=== PATIENT | male | born 1990 | race Two or more races ===

== ENCOUNTER 2021-05-16 13:32 | Emergency (ER) | payer SELFPAY ==
[~2021-05-16] VITALS: Ht 170.2 cm; Wt 84.4 kg
[2021-05-16] MEDS ORDERED: cefTRIAXone SOD 1,000 MG VL IM ONE (17:00)
[2021-05-16] MEDS ORDERED: cloNIDine HCL 0.1 MG TAB PO ONE (17:00)
[2021-05-16 18:27] VITALS: BP 157/106
== END 2021-05-16 18:33 | disposition home or self-care (01) ==
LOC: ER 13:32
DX: H60.92 Unspecified otitis externa, left ear (principal); H66.91 Otitis media, unspecified, right ear; F12.10 Cannabis abuse, uncomplicated; F15.10 Other stimulant abuse, uncomplicated
CPT/HCPCS: 96372; 99283; J0696

== ENCOUNTER 2023-04-10 20:56 | Emergency (ER) | payer MEDICAID ==
[~2023-04-10] VITALS: Ht 182.9 cm; Wt 77.2 kg
[2023-04-10] MEDS ORDERED: HYDROmorphone HCL 2 MG/ML VL/or syr IM ONE (21:45)
[2023-04-11] MEDS ORDERED: HYDR-4798 PO (01:12)
[2023-04-11 02:38] VITALS: BP 162/104; PULSE 97; RESP 18; TEMP 97.2; O2SAT 96
== END 2023-04-11 02:41 | disposition home or self-care (01) ==
LOC: ER 20:56
DX: M76.62 Achilles tendinitis, left leg (principal); M79.662 Pain in left lower leg; F15.90 Other stimulant use, unspecified, uncomplicated
CPT/HCPCS: 73700; 96372; 99285; J1170

== ENCOUNTER 2024-01-04 17:54 | Emergency (ER) | payer MEDICAID ==
[~2024-01-04] VITALS: Ht 167.6 cm; Wt 75.4 kg
[~2024-01-04 17:54] MED LIST: HYDR-4798 PO
[2024-01-04 21:55] LABS: Urine Bacteria None Seen /hpf (None Seen)
[2024-01-04 22:10] LABS: Urine Blood Negative /uL (Negative); Urine Clarity Clear (Clear); Urine Color Yellow (Yellow); Urine Mucus FEW (None Seen); Urine Protein, UAD 1+ (Negative); Urine Urobilinogen Normal (Negative); Urine WBC 5 /hpf (0 - 3)
[2024-01-04 22:13] LABS: Amphetamine Screen, Urine Pos (NEGATIVE); Barbiturate Scree,Urine Neg (NEGATIVE); Benzodiazephine Screen, Urine Neg (NEGATIVE); Cocaine Screen, Urine Neg (NEGATIVE)
[2024-01-04 22:14] LABS: Cannabinoid Screen, Urine Pos (NEGATIVE); Opiate Scree,Urine Neg (NEGATIVE); Phencyclidine Screen, Urine Neg (NEGATIVE)
[2024-01-04 23:14] LABS: Basophils # (auto) 0.1 10 ^3/uL (0-0.2); Basophils % (auto) 0.9 % (0.0-2.0); Eosinophils # (auto) 0.2 10 ^3/uL (0-0.8); Eosinophils % (auto) 2.6 % (0.0-7.0); Hematocrit 45.2 % (41.0-53.0); Hemoglobin 15.5 g/dL (13.5-17.5); Lymphocytes # (auto) 2.9 10 ^3/uL (0.4-5.4); Lymphocytes % (auto) 35.3 % (10.0-50.0); Mean Corpuscular Hemoglobin 31.6 pg (28.0-32.0); Mean Corpuscular Hgb Conc. 34.4 g/dL (32.0-36.0); Mean Corpuscular Volume 91.8 fL (80.0-100.0); Monocytes # (auto) 0.8 10 ^3/uL (0-1.3); Monocytes % (auto) 9.3 % (0.0-12.0); Neutrophils # (auto) 4.3 10 ^3/uL (1.6-8.6); Neutrophils % (auto) 51.9 % (37.0-80.0); Red Blood Cells 4.93 10^6/uL (4.5-5.90); Red Cell Distribution Width 13.6 % (11.8-14.3); White Blood Cell 8.2 10^3/uL (4.4-10.8)
[2024-01-04 23:38] LABS: Alanine Aminotransferase 26 U/L (7-40); Albumin 4.6 g/dL (3.2-4.8); Alkaline Phosphatase 98 U/L (46-116); Anion Gap 3 (5-15); Aspartate Aminotransferase 17 U/L (13-40); BUN/Creatinine Ratio 11.1 (10.0-20.0); Blood Urea Nitrogen 11 mg/dL (9-23); Calcium 9.7 mg/dL (8.7-10.4); Carbon Dioxide 25 mmol/L (20-30); Chloride 113 mmol/L (98-107); Glucose 94 mg/dL (74-106); Lipase 36 U/L (12-53); Potassium 3.8 mmol/L (3.5-5.1); Sodium 141 mmol/L (136-145)
[2024-01-04 23:39] LABS: Bilirubin, Total 0.4 mg/dL (0.2-1.0)
[2024-01-05] MEDS: DICYCLOMINE HCL (10MG/ML) 2 ML AMPULE IM ONE (00:19)
[2024-01-05 00:23] VITALS: BP 151/103; PULSE 90; RESP 19; TEMP 97.7; O2SAT 99
== END 2024-01-05 00:25 | disposition home or self-care (01) ==
LOC: ER 17:54
DX: F15.10 Other stimulant abuse, uncomplicated (principal); F12.10 Cannabis abuse, uncomplicated; R10.84 Generalized abdominal pain; Z87.891 Personal history of nicotine dependence; Z79.899 Other long term (current) drug therapy
CPT/HCPCS: 36415; 80053; 80307; 81001; 83690; 85025; 96372; 99283; J0500